=== PATIENT | female | born 2000 | race Caucasian/White ===

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

== ENCOUNTER 2021-05-03 14:41 | Emergency (ER) | payer OTHER ==
[2021-05-03] MEDS ORDERED: Ibuprofen 600 MG TAB ONE (15:35)
[2021-05-03] MEDS ORDERED: Sodium Chloride 0.9% 1,000 ML ONE (15:35)
[2021-05-03 16:05] LABS: ALT (SGPT) 28 U/L (8-55); AST (SGOT) 39 U/L (5-34); Albumin 3.3 g/dL (3.5-5.0); Alkaline Phosphatase 123 U/L (40-110); Anion Gap 17 mmol/L (10-20); BUN (Urea Nitrogen) 9 mg/dL (7.0-18.7); Bilirubin, Total 0.4 mg/dL (0.2-1.2); Calc. Creatinine Clearance 0 mL/min (70-130); Calcium 8.5 mg/dL (7.8-10.44); Carbon Dioxide 18 mmol/L (22-29); Chloride 103 mmol/L (98-107); Globulin 3.3 g/dL (2.4-3.5); Glucose 125 mg/dL (70-105); Magnesium 1.6 mg/dL (1.6-2.6); Potassium 3.7 mmol/L (3.5-5.1); Protein, Total 6.6 g/dL (6.0-8.3); Sodium 134 mmol/L (136-145)
[2021-05-03 16:08] LABS: #Lymphocytes 0.2 thou/uL (1.20-3.40); #Monocytes 0.4 thou/uL (0.11-0.59); #Neutrophils 8.1 thou/uL (1.40-6.50); %Basophils 0.3 % (0.0-1.0); %Eosinophils 0.2 % (0.0-10.0); %Lymphocytes 2.5 % (21.0-51.0); Hemoglobin 11.1 g/dL (12.0-16.0); Mean Corpuscular HGB CONC 32.4 g/dL (32.0-36.0); Mean Corpuscular Hemoglobin 28.9 pg (27.0-31.0); Mean Corpuscular Volume 89.1 fL (78.0-98.0); Mean Platelet Volume 6.5 fL (7.4-10.4); Platelet Count 243 thou/uL (130-400); Red Blood Cell (RBC) Count 3.84 mill/uL (4.20-5.40); White Blood Cell (WBC) Count 8.8 thou/uL (4.8-10.8)
[2021-05-03] MEDS ORDERED: Cefepime 2 GM VIAL ONE (16:12)
[2021-05-03] MEDS ORDERED: Sodium Chloride 0.9% 100 ML ONE (16:12)
[2021-05-03 17:01] LABS: Bilirubin Negative (Negative); Blood, Urine Trace (Negative); Glucose, Urine (Dipstick) Negative (Negative); Ketone, Urine Negative (Negative); Leukocyte Negative (Negative); Nitrite Negative (Negative); Protein, Urine (Dipstick) Negative (Neg-Trace); Specific Gravity, Urine 1.015 (1.005-1.030); Urobilinogen 0.2 mg/dL (Less than 2)
[2021-05-03 17:10] LABS: Clarity Hazy (Clear)
[2021-05-03 17:12] LABS: Bacteria/HPF 1+ HPF (None Seen); Squamous Epithelial 0-3 HPF (0-3)
== END 2021-05-03 20:25 | disposition short-term general hospital (02) ==
LOC: MADERS 14:41
DX: A41.9 Sepsis, unspecified organism (principal); R00.0 Tachycardia, unspecified; L89.229 Pressure ulcer of left hip, unspecified stage
CPT/HCPCS: 80053; 81003; 81015; 83605; 83735; 85025; 87040; 87086; 93005; 96365; 96367; J0692; J3370; J3490; J7050

== ENCOUNTER → 2022-12-03 | Day surgery (SDC) | payer OTHER ==
[2022-12-03 10:50] LABS: INR-International Normal Ratio 1.4; Prothrombin Time 18.1 sec (12.0-14.7)
== END | disposition home or self-care (01) ==
LOC: MADER/OP 10:20
PROVIDERS: ATTEND Internal Medicine
DX: Z45.2 Encounter for adjustment and management of vascular access device (principal); B95.61 Methicillin susceptible Staphylococcus aureus infection as the cause of diseases classified elsewhere; I82.403 Acute embolism and thrombosis of unspecified deep veins of lower extremity, bilateral; L89.154 Pressure ulcer of sacral region, stage 4
CPT/HCPCS: 85610; 85730